=== PATIENT | male | born 1990 | race Caucasian/White ===

== ENCOUNTER 2024-01-03 17:30 | Emergency (ER) | payer SELFPAY ==
[2024-01-03 17:38] VITALS: BMI 25.0
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
[2024-01-03 18:00] VITALS: BP 152/81; PULSE 83; RESP 17; O2SAT 97
[2024-01-03 18:30] VITALS: BP 153/77; PULSE 93; RESP 17; O2SAT 96
[2024-01-03] MEDS: tetanus-dipt-pertussis 0.5 mL SDV IM (19:25)
[2024-01-03] MEDS: cephALEXin 500 mg Capsule PO (19:28)
[2024-01-03 19:30] VITALS: BP 145/92; PULSE 89; RESP 18; O2SAT 98
[2024-01-03 20:02] VITALS: BP 145/73; PULSE 85; RESP 17; O2SAT 98
== END 2024-01-03 19:55 | disposition home or self-care (01) ==
PROVIDERS: Emergency Provider Emergency Medicine
DX: S01.01XA Laceration without foreign body of scalp, initial encounter (principal); S01.81XA Laceration without foreign body of other part of head, initial encounter; S00.03XA Contusion of scalp, initial encounter; W16.122A Fall into natural body of water striking bottom causing other injury, initial encounter; Y92.828 Other wilderness area as the place of occurrence of the external cause; Z23 Encounter for immunization
CPT/HCPCS: 12002; 70450; 90471; 90715; 99284